=== PATIENT | female | born 1975 | race Caucasian/White ===

== ENCOUNTER 2017-11-28 11:17 | Emergency (ER) | payer MEDICAID ==
[~2017-11-28] VITALS: Ht 172.7 cm; Wt 86.7 kg
[~2017-11-28 11:17] MED LIST: CHLO25CA10 PO; PROC-8; PROC10TA PO
[2017-11-28 11:34] VITALS: BP 122/78
[2017-11-28] MEDS ORDERED: AMOX500C2 PO (11:55)
[2017-11-28] MEDS ORDERED: TRAM50TA2 PO (11:55)
== END 2017-11-28 12:04 | disposition home or self-care (01) ==
LOC: ER 11:17
DX: K08.89 Other specified disorders of teeth and supporting structures (principal); G89.29 Other chronic pain; G43.909 Migraine, unspecified, not intractable, without status migrainosus
CPT/HCPCS: 99283

== ENCOUNTER 2018-02-19 20:57 | Emergency (ER) | payer MEDICAID ==
[~2018-02-19] VITALS: Ht 172.7 cm; Wt 82.5 kg
[~2018-02-19 20:57] MED LIST changes: +LIDO20SO16 PO; -PROC10TA PO; +PROC10TA10 PO
[2018-02-19 21:00] VITALS: BP 128/84
[2018-02-19] MEDS ORDERED: LIDOcaine 1.5% w/epinephrine 1:200,000 5ml ampul IJ ONE (21:10)
[2018-02-19] MEDS ORDERED: HYDR-565 PO (21:59)
[2018-02-19] MEDS ORDERED: HYDROcodone/acetaminophen 10/325mg tab PO ONE (22:00)
== END 2018-02-19 22:18 | disposition home or self-care (01) ==
LOC: ER 20:57
DX: S91.312A Laceration without foreign body, left foot, initial encounter (principal); G43.909 Migraine, unspecified, not intractable, without status migrainosus; W45.8XXA Other foreign body or object entering through skin, initial encounter; Y93.39 Activity, other involving climbing, rappelling and jumping off; Y92.89 Other specified places as the place of occurrence of the external cause; Y99.8 Other external cause status
CPT/HCPCS: 12002; 73630; 99284; A6223; A6255; A6449; J3490

== ENCOUNTER 2018-02-28 11:10 | Emergency (ER) | payer MEDICAID ==
[~2018-02-28] VITALS: Ht 175.3 cm; Wt 83.6 kg
[~2018-02-28 11:10] MED LIST changes: +HYDR-565 PO
[2018-02-28 13:55] VITALS: BP 125/65
== END 2018-02-28 13:59 | disposition home or self-care (01) ==
LOC: ER 11:10
DX: S91.312D Laceration without foreign body, left foot, subsequent encounter (principal); G89.29 Other chronic pain; G43.909 Migraine, unspecified, not intractable, without status migrainosus; Z79.899 Other long term (current) drug therapy; W45.8XXD Other foreign body or object entering through skin, subsequent encounter
CPT/HCPCS: 99282; A6255; A6449

== ENCOUNTER 2018-03-07 07:02 | Emergency (ER) | payer MEDICAID ==
[~2018-03-07] VITALS: Ht 597.6 cm; Wt 85.0 kg
[~2018-03-07 07:02] MED LIST changes: +CEPH500C5 PO; +HYDR-569 PO; +SULF1TAB49 PO
[2018-03-07 07:14] VITALS: BP 110/76
== END 2018-03-07 07:51 | disposition home or self-care (01) ==
LOC: ER 07:02
DX: S91.312D Laceration without foreign body, left foot, subsequent encounter (principal); G89.29 Other chronic pain; G43.909 Migraine, unspecified, not intractable, without status migrainosus; Z79.899 Other long term (current) drug therapy; W45.8XXD Other foreign body or object entering through skin, subsequent encounter
CPT/HCPCS: 99281; A6449

== ENCOUNTER 2018-09-04 19:06 | Emergency (ER) | payer MEDICAID ==
[~2018-09-04] VITALS: Ht 172.7 cm; Wt 84.1 kg
[~2018-09-04 19:06] MED LIST changes: +HYDR-4383 PO; -HYDR-565 PO; -HYDR-569 PO; -SULF1TAB49 PO
[2018-09-04 19:28] VITALS: BP 107/72
== END 2018-09-04 19:32 ==
LOC: ER 19:07
DX: Z04.1 Encounter for examination and observation following transport accident (principal); G43.909 Migraine, unspecified, not intractable, without status migrainosus; G89.29 Other chronic pain; V49.88XA Car occupant (driver) (passenger) injured in other specified transport accidents, initial encounter; Y93.89 Activity, other specified; Y92.413 State road as the place of occurrence of the external cause; Y99.9 Unspecified external cause status
CPT/HCPCS: 99283

== ENCOUNTER 2019-11-05 08:11 | Emergency (ER) | payer MEDICAID ==
[~2019-11-05] VITALS: Ht 165.1 cm; Wt 76.4 kg
[~2019-11-05 08:11] MED LIST changes: -CEPH500C5 PO
[2019-11-05 08:15] VITALS: BP 128/87
[2019-11-05] MEDS ORDERED: cyclobenzaprine 10mg tablet PO ONE (08:45)
[2019-11-05] MEDS ORDERED: ketorolac trometh. 30mg/ml inj. IM ONE (08:45)
[2019-11-05] MEDS ORDERED: CYCL-1 PO (08:50)
[2019-11-05] MEDS ORDERED: IBUP-1985 PO (08:50)
== END 2019-11-05 09:15 | disposition home or self-care (01) ==
LOC: ER 08:12
DX: M50.10 Cervical disc disorder with radiculopathy, unspecified cervical region (principal); M79.602 Pain in left arm; M79.601 Pain in right arm; G89.29 Other chronic pain; F17.200 Nicotine dependence, unspecified, uncomplicated; Z79.899 Other long term (current) drug therapy
CPT/HCPCS: 96372; 99283; J1885

== ENCOUNTER 2022-08-15 15:38 | Emergency (ER) | payer SELFPAY ==
[~2022-08-15 15:38] MED LIST changes: +CYCL-1 PO; +IBUP-1985 PO
== END 2022-08-15 19:42 | disposition left against medical advice (07) ==
LOC: ER 15:40
DX: Z00.00 Encounter for general adult medical examination without abnormal findings (principal); Z53.21 Procedure and treatment not carried out due to patient leaving prior to being seen by health care provider